=== PATIENT | male | born 1995 | race Two or more races ===

== ENCOUNTER 2016-09-02 09:15 | Emergency (ER) | payer OTHER ==
[2016-09-02 09:27] VITALS: BP 120/77; PULSE 62; RESP 16; TEMP 97.9; O2SAT 94
--- NOTE | 2016-09-02 10:13 | UCPHY ---
H & P Time Seen by Provider: 09/02/16 09:18 Patient Type: Established HPI/ROS: 20-year-old male presents complaining of rash to his left face and right wrist of several days duration, he has tried Face Wash without improvement. No fevers or chills no nausea vomiting diarrhea, no unusual exposures Review of systems General no fever no chills no weakness HEENT no eye pain no eye discharge. 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 Smoking Status: Current some day smoker Physical Exam: 20-year-old male Alert and oriented in no acute distress nontoxic appearance, afebrile Atraumatic normocephalic Left aspect of face several areas with around erythematous lesions with minor desquamation and yellow crusting No palpable masses, no fluctuance Neck no JVD Lungs clear to auscultation, no respiratory distress Heart regular rate and rhythm Extremities no cyanosis clubbing edema Right hand dorsum with 1 erythematous macular lesion nonfluctuant Constitutional: Initial Vital Signs Temperature (C) 36.6 C 09/02/16 09:18 Heart Rate 62 09/02/16 09:18 Respiratory Rate 16 09/02/16 09:18 Blood Pressure 120/77 09/02/16 09:18 O2 Sat (%) 94 09/02/16 09:18 O2 Delivery Mode Room Air Allergies/Adverse Reactions: No Known Allergies Allergy (Verified 09/02/16 09:27) Home Medications: Medication Instructions Recorded Mupirocin Calcium [Bactroban] 30 gm TP BID #30 cream.gm. 09/02/16 Sulfamethox/Tmp 800/160 mg 1 tab PO BID #20 tab 09/02/16 [Bactrim Ds] Medical Decision Making ED Course/Re-evaluation: Patient seen and evaluated for skin rash primarily to left face and neck and 1 lesion on his right hand Differential diagnosis considered Impetigo, MRSA, folliculitis, acne Impression Impetigo, possibly secondary to folliculitis Plan Bactrim Mupirocin ointment Follow-up PCP Return if worsening Departure - Departure Disposition: Home, Routine, Self-Care Clinical Impression: Impetigo due to Staphylococcus aureus Condition: Good Instructions: Impetigo (ED) Referrals: NONE *PRIMARY CARE P,. [Primary Care Provider] - As per Instructions Prescriptions: Mupirocin Calcium [Bactroban] 30 gm TP BID #30 cream.gm. Sulfamethox/Tmp 800/160 mg [Bactrim Ds] 1 tab PO BID #20 tab - PQRS PQRS Measurement: na
== END 2016-09-02 10:18 | disposition home or self-care (01) ==
LOC: CED 09:15
DX: L01.01 Non-bullous impetigo (principal); B95.61 Methicillin susceptible Staphylococcus aureus infection as the cause of diseases classified elsewhere
CPT/HCPCS: G0463-PO